=== PATIENT | male | born 1965 | race Caucasian/White ===

== ENCOUNTER 2020-06-23 09:29 | Day surgery (SDC) | payer BC ==
[~2020-06-23] VITALS: Ht 193 cm; Wt 128.2 kg
[~2020-06-23 09:29] MED LIST: IBUP800 PO; NAPR220; OXYACE5T PO; VARE1 PO
--- NOTE | 2020-06-23 11:58 | NUR ---
06/23/20 1158 Concepcion Marcos INFORMATION PROVIDED: DIVERTICULOSIS AND HIGH FIBER DIET TO PATIENT UPON D/C.
== END 2020-06-23 11:40 | disposition home or self-care (01) ==
LOC: ORSCSDS 09:29
PROVIDERS: Internal Medicine Gastroenterology
PROC: 0DBM8ZX Excision of Descending Colon, Via Natural or Artificial Opening Endoscopic, Diagnostic (ICD-10-PCS; principal; 2020-06-23 10:45)
DX: Z12.11 Encounter for screening for malignant neoplasm of colon (principal); Z86.010 Personal history of colon polyps; D12.4 Benign neoplasm of descending colon; K57.30 Diverticulosis of large intestine without perforation or abscess without bleeding; K64.1 Second degree hemorrhoids
CPT/HCPCS: 88305; J2704; J7120